=== PATIENT | female | born 1995 ===

== ENCOUNTER 2017-08-21 19:09 | Emergency (ER) | payer BC, MEDICAID ==
[2017-08-21 19:21] VITALS: PULSE 102; RESP 20; TEMP 98.8; O2SAT 100
[2017-08-21 20:15] LABS: RBC URINE 20 /hpf (0-3); URINE BACTERIA MOD (<OCC); URINE BILIRUBIN NEGATIVE (NEGATIVE); URINE BLOOD 1+ (NEGATIVE); URINE COLOR Yellow (YELLOW); URINE GLUCOSE (UA) NORMAL (Normal); URINE KETONE NEGATIVE (NEGATIVE); URINE LEUKOCYTE ESTERASE 2+ Leu/uL (Negative); URINE PROTEIN NEGATIVE (NEGATIVE); URINE UROBILINOGEN NORMAL mg/dL (0.2-1.0); WBC URINE 87 /hpf (0-5)
--- NOTE | 2017-08-21 20:34 | C.PDOC ---
History Of Present Illness 22 y/o female presents to the ED c/o right side back pain, that started two days ago with associated frequent urination. Pain worse with movement. No trauma. The patient denies dysuria, fever, chills, abdominal pain, vaginal discharge nausea, and vomiting. Notes h/o similar symptoms in the past that when she was diagnosed with UTI. Time Seen by Provider: 08/21/17 19:35 Chief Complaint (Nursing): Back Pain History Per: Patient History/Exam Limitations: no limitations Onset/Duration Of Symptoms: Days Current Symptoms Are (Timing): Still Present Past Medical History Reviewed: Historical Data, Nursing Documentation, Vital Signs Vital Signs: Last Vital Signs Temp 98.8 F 08/21/17 19:18 Pulse 102 H 08/21/17 19:18 Resp 20 08/21/17 19:18 BP Pulse Ox 100 08/21/17 20:51 Surgical History: No Surg Hx Family History: States: No Known Family Hx - Social History Hx Alcohol Use: Yes Hx Substance Use: No Review Of Systems Except As Marked, All Systems Reviewed And Found Negative. Constitutional: Negative for: Fever, Chills, Sweats Cardiovascular: Negative for: Chest Pain Respiratory: Negative for: Cough, Shortness of Breath Gastrointestinal: Negative for: Nausea, Vomiting, Abdominal Pain, Diarrhea Musculoskeletal: Positive for: Back Pain (right side ) Physical Exam - Physical Exam Appears: Non-toxic, No Acute Distress Skin: Warm, Dry Head: Atraumatic, Normacephalic Eye(s): bilateral: Normal Inspection, EOMI Oral Mucosa: Moist Neck: Supple Chest: Symmetrical Cardiovascular: Rhythm Regular Respiratory: Normal Breath Sounds, No Rales, No Rhonchi, No Wheezing Gastrointestinal/Abdominal: Soft, No Tenderness, No Guarding, No Rebound Back: No Vertebral Tenderness, Other (paralumbar tenderness) Pelvic: No Vaginal Bleeding, No Vaginal Discharge Extremity: Capillary Refill (<2sec.) Neurological/Psych: Oriented x3, Normal Speech, Normal Cognition, Normal Motor, Normal Sensation Gait: Steady ED Course And Treatment O2 Sat by Pulse Oximetry: 100 (RA) Progress Note: The patient received a Urine Culture, UA, and Bactrim DS Tab. The patient was administered Bactrim. The patient has improved and is resting comfortably. Upon, reevaluation the patient is afebrile and is PO tolerant. The patient was advised to have a follow up with PMD for further evealution in 1-2 days. Disposition - Disposition Disposition: HOME/ ROUTINE Disposition Time: 20:32 Condition: STABLE Additional Instructions: Follow up with your primary medical doctor or clinic in 2-5 days for further evaluation. Take medications as prescribed. Return to the emergency department at any time if symptoms persist or worsen. Prescriptions: Sulfamethoxazole/Trimethoprim [Bactrim DS 800 mg-160 mg] 1 tab PO BID #14 tab Instructions: Urinary Tract Infection in Women (ED) Forms: [employer] (Irish) - Clinical Impression Clinical Impression: UTI (urinary tract infection) - PA / PANTOGRAPH MACHINE SET UP OPERATOR / Resident Statement MD/DO has reviewed & agrees with the documentation as recorded. MD/DO has examined the patient and agrees with the treatment plan. - Scribe Statement Esperanza Disla All medical record entries made by the Scribe were at my direction and personally dictated by me. I have reviewed the chart and agree that the record accurately reflects my personal performance of the history, physical exam, medical decision making, and the department course for this patient. I have also personally directed, reviewed, and agree with the discharge instructions and disposition.
[2017-08-21] MEDS ORDERED: Tmp-Smz 800 mg-160 mg DS Tab PO STA (20:37)
[2017-08-21] MEDS ORDERED: Tmp-Smz 800 mg-160 mg DS Tab ONE (20:45)
== END 2017-08-21 20:49 | disposition home or self-care (01) ==
LOC: C.ER 19:09
DX: N39.0 Urinary tract infection, site not specified (principal)